=== PATIENT | female | born 1995 ===

== ENCOUNTER 2016-12-23 17:09 | Emergency (ER) | payer MEDICAID ==
[2016-12-23 17:11] VITALS: BMI 17.6
[2016-12-23 17:13] VITALS: TEMP 98.9
[2016-12-23] MEDS ORDERED: Sodium Chloride 0.9% 1,000 ML IV STA (17:35)
--- NOTE | 2016-12-23 17:41 | ED PDOC ---
Arrival/HPI - General Chief Complaint: Back Pain Time Seen by Provider: 12/23/16 17:19 Historian: Patient - History of Present Illness Narrative History of Present Illness (Text): 12/23/16 17:37 21 -year-old female presents today with a sudden onset of left sided flank pain. Patient states she was woken up at 4:00 in the morning with pain to the left side of the back. Patient denies urinary symptoms. Denies fevers or chills. Patient denies any recent trauma or injury. Denies any heavy lifting. Patient denies abdominal pain. She describes the pain as sharp and stabbing and worse with deep inspiration and movement. pt states she took tylenol at home this morning without improvement in the symptoms. no vomiting/diarrhea. pt denies cp or sob. no n/v/d. no vaginal bleeding or discharge. pt states she is worried that she has a kidney stone. pt denies dysuria or urinary frequency. denies hematuria. Past Medical History - Provider Review Nursing Documentation Reviewed: Yes - Travel History Have you recently traveled outside [place] w/in the past 3 mons?: No - Infectious Disease Hx of Infectious Diseases: None - Tetanus Immunization Tetanus Immunization: Unknown - Cardiac Hx Cardiac Disorders: No - Pulmonary Hx Respiratory Disorders: No - Neurological Hx Neurological Disorder: No - HEENT Hx HEENT Disorder: No - Renal Hx Renal Disorder: No - Endocrine/Metabolic Hx Endocrine Disorders: No - Hematological/Oncological Hx Blood Disorders: No - Integumentary Hx Dermatological Disorder: No - Musculoskeletal/Rheumatological Hx Musculoskeletal Disorders: No Hx Falls: No - Gastrointestinal Hx Gastrointestinal Disorders: No - Genitourinary/Gynecological Hx Genitourinary Disorders: No - Psychiatric Hx Psychophysiologic Disorder: No Hx Substance Use: No - Surgical History Other/Comment: Breast augmentation October 2016 - Anesthesia Hx Anesthesia: Yes (epidural) Hx Anesthesia Reactions: No Hx Malignant Hyperthermia: No Family/Social History - Physician Review Nursing Documentation Reviewed: Yes Family/Social History: Unknown Family HX Smoking Status: Never Smoked Hx Alcohol Use: No Hx Substance Use: No Allergies/Home Meds Allergies/Adverse Reactions: Allergies No Known Allergies Allergy (Verified 12/23/16 17:12) Review of Systems - Review of Systems Constitutional: absent: Fatigue, Fevers Respiratory: absent: SOB, Cough Cardiovascular: absent: Chest Pain, Palpitations Gastrointestinal: absent: Abdominal Pain, Nausea, Vomiting Genitourinary Female: absent: Dysuria, Frequency, Hematuria, Vaginal Bleeding, Vaginal Discharge Musculoskeletal: Back Pain. absent: Arthralgias, Neck Pain Skin: absent: Rash, Pruritis Neurological: absent: Headache, Dizziness Psychiatric: absent: Anxiety, Depression Physical Exam Vital Signs Reviewed: Yes Vital Signs Temp Pulse Resp BP Pulse Ox 12/23/16 18:10 86 18 121/75 99 12/23/16 17:12 98.9 F 94 H 19 122/81 99 Temperature: Afebrile Blood Pressure: Normal Pulse: Regular Respiratory Rate: Normal Appearance: Positive for: Well-Appearing, Non-Toxic, Comfortable Pain Distress: None Mental Status: Positive for: Alert and Oriented X 3 - Systems Exam Head: Present: Atraumatic Mouth: Present: Moist Mucous Membranes Neck: Present: Normal Range of Motion Respiratory/Chest: Present: Clear to Auscultation, Good Air Exchange. No: Respiratory Distress, Accessory Muscle Use Cardiovascular: Present: Regular Rate and Rhythm, Normal S1, S2. No: Murmurs Abdomen: Present: Normal Bowel Sounds. No: Tenderness, Distention, Peritoneal Signs, Rebound, Guarding Back: Present: Normal Inspection, Paraspinal Tenderness (+ left flank tenderness ; no edema, no erythema; no ecchymosis). No: CVA Tenderness, Midline Tenderness Upper Extremity: Present: Normal Inspection Lower Extremity: Present: Normal Inspection Neurological: Present: GCS=15, Speech Normal Skin: Present: Warm, Dry, Normal Color. No: Rashes Psychiatric: Present: Alert, Oriented x 3 Medical Decision Making ED Course and Treatment: 12/23/16 17:54 21-year-old female with left flank pain since 4 AM this morning CBC wbc; 13.4 CMP: wnl Urinalysis + leukocytes, + blood, Toradol, normal saline given Patient reassessment: pt feeling better after medications, vitals stable. 12/23/16 21:01 discussed all results in depth with the patient; advised f/u with primary care physician tomorrow. advised taking abx as prescribed. advised immediate return if symptoms worsen,persist or if new symptoms develop; high fevers, increasing pain, nausea/vomiting. will start patient on levaquin x 5 days. will give 1st done in er and d/c home with 4 more days worth. pt has appointment with PMD tomorrow. impression; back pain, pyelonephritis motrin every 6 hours as needed for pain flexeril; 1 tablet every 8 hours as needed for muscle spasms; may cause drowsiness. levaquin; daily x 4 more days follow up with the primary care physician tomorrow return immediately if symptoms worsen,persist or if new symptoms develop; high fevers, increasing pain, nausea/vomiting or if any other concerning symptoms develop. - Lab Interpretations Lab Results: 12/23/16 18:05 12/23/16 19:25 Lab Results 12/23/16 19:25: Sodium 140, Potassium 4.0, Chloride 106, Carbon Dioxide 25, Anion Gap 13, BUN 11, Creatinine 0.6, Est GFR ( Amer) > 60, Est GFR (Non- Af Amer) > 60, Random Glucose 79, Calcium 9.0, Total Bilirubin 0.4, AST 29, ALT 19, Alkaline Phosphatase 65, Total Protein 8.1, Albumin 4.2, Globulin 3.9, Albumin/Globulin Ratio 1.1 12/23/16 18:05: WBC 13.4 H, RBC 4.45, Hgb 12.2, Hct 36.7, MCV 82.5, MCH 27.4, MCHC 33.2, RDW 14.4, Plt Count 417, MPV 9.4, Gran % 73.2 H, Lymph % (Auto) 17.7 L, Sully % (Auto) 8.3 H, Eos % (Auto) 0.6 L, Baso % (Auto) 0.2, Gran # 9.82 H, Lymph # 2.4, Sully # 1.1 H, Eos # 0.1, Baso # 0.03 12/23/16 18:05: Urine Color Yellow, Urine Appearance Clear, Urine pH 6.0, Ur Specific [place] >= 1.030, Urine Protein Negative, Urine Glucose (UA) Negative, Urine Ketones Negative, Urine Blood Small H, Urine Nitrate Negative, Urine Bilirubin Negative, Urine Urobilinogen 0.2, Ur Leukocyte Esterase Trace H, Urine RBC 5 - 10, Urine WBC 1 - 3, Ur Epithelial Cells 4 - 5, Urine Bacteria Mod , Urine HCG, Qual Negative - RAD Interpretation Radiology Orders: 12/23/16 17:38 CHEST PORTABLE [RAD] Stat 12/23/16 19:14 ABD & PELVIS W/O PO OR IV CONT [CT] Stat - Medication Orders Current Medication Orders: Discontinued Medications Sodium Chloride (Sodium Chloride 0.9%) 1,000 mls @ 999 mls/hr IV .Q1H1M STA Stop: 12/23/16 18:35 Last Admin: 12/23/16 18:08 Dose: 999 mls/hr Ketorolac Tromethamine (Toradol) 15 mg IVP STAT STA Stop: 12/23/16 17:36 Last Admin: 12/23/16 18:08 Dose: 15 mg Re-Assess: SHARONA Pain Assessment Document 12/23/16 19:08 HI (Rec: 12/23/16 19:11 OK [id number]) Pain Reassessment Is this a pain reassessment? Yes Sleep Is patient sleeping during reassessment? No Presence of Pain Presence of Pain No Pain Scale Used Pain Scale Used Numeric Disposition/Present on Arrival - Present on Arrival Any Indicators Present on Arrival: No History of DVT/PE: No History of Uncontrolled Diabetes: No Urinary Catheter: No History of Decub. Ulcer: No History Surgical Site Infection Following: None - Disposition Have Diagnosis and Disposition been Completed?: Yes Diagnosis: Pyelonephritis, Back pain Disposition: HOME/ ROUTINE Disposition Time: 21:10 Patient Plan: Discharge Condition: GOOD Discharge Instructions (ExitCare): Acute Pyelonephritis (ED), Back Pain (ED) Additional Instructions: motrin every 6 hours as needed for pain flexeril; 1 tablet every 8 hours as needed for muscle spasms; may cause drowsiness. levaquin; daily x 4 more days follow up with the primary care physician tomorrow return immediately if symptoms worsen,persist or if new symptoms develop; high fevers, increasing pain, nausea/vomiting or if any other concerning symptoms develop. Prescriptions: Cyclobenzaprine [Flexeril] 5 mg PO Q8 #10 tab Ibuprofen [Motrin Tab] 400 mg PO Q6H PRN #20 tab PRN Reason: Pain, Mild (1-3) Levofloxacin [Levaquin] 750 mg PO DAILY #4 tablet Forms: WORK NOTE
[2016-12-23 18:11] VITALS: BP 121/75
[2016-12-23 18:12] LABS: ADD MANUAL DIFF? NO
[2016-12-23 18:33] LABS: URINE BILIRUBIN NEGATIVE (NEGATIVE); URINE BLOOD SMALL (NEGATIVE); URINE GLUCOSE (UA) NEGATIVE (NEGATIVE); URINE KETONE NEGATIVE (NEGATIVE); URINE LEUKOCYTE ESTERASE TRACE Leu/uL (NEGATIVE); URINE PROTEIN NEGATIVE mg/dL (<30 mg/dL); URINE UROBILINOGEN 0.2 E.U./dL (<1 E.U./dL)
[2016-12-23 18:35] LABS: URINE APPEARANCE CLEAR (CLEAR); URINE COLOR YELLOW (YELLOW)
[2016-12-23 18:40] LABS: BASO # 0.03 K/mm3 (0.0-2.0); BASO % 0.2 % (0.0-3.0); EOS # 0.1 (0.0-0.7); EOS % 0.6 % (1.5-5.0); GRAN # 9.82 (1.4-6.5); GRAN % 73.2 % (50.0-68.0); HEMATOCRIT 36.7 % (36.0-48.0); LYMPH # 2.4 (1.2-3.4); LYMPH % 17.7 % (22.0-35.0); MEAN CELL VOLUME 82.5 fL (80.0-105.0); MEAN CORPUSCULAR HEMOGLOBIN 27.4 pg (25.0-35.0); MEAN CORPUSCULAR HGB CONC 33.2 g/dl (31.0-37.0); MEAN PLATELET VOLUME 9.4 fl (7.0-11.0); MONO # 1.1 (0.1-0.6); MONO % 8.3 % (1.0-6.0); PLATELET COUNT 417 10^3/uL (120.0-450.0); RED CELL DISTRIBUTION WIDTH 14.4 % (11.5-14.5); WHITE BLOOD COUNT 13.4 10^3/ul (4.5-11.0)
--- NOTE | 2016-12-23 18:42 | RAD ---
HISTORY: flank pain COMPARISON: No prior. FINDINGS: LUNGS: No active pulmonary disease. PLEURA: No significant pleural effusion identified, no pneumothorax apparent. CARDIOVASCULAR: Normal. OSSEOUS STRUCTURES: No significant abnormalities. VISUALIZED UPPER ABDOMEN: Normal. OTHER FINDINGS: None. IMPRESSION: No active disease.
[2016-12-23 18:53] LABS: URINE BACTERIA MOD (NEG)
[2016-12-23 20:13] LABS: ALB/GLOB RATIO 1.1 (1.1-1.8); ALKALINE PHOSPHATASE 65 U/L (38-133); ALT/SGPT 19 U/L (7-56); AST/SGOT 29 U/L (15-39); BILIRUBIN,TOTAL 0.4 mg/dL (0.2-1.3); BLOOD UREA NITROGEN 11 mg/dL (7-21); CARBON DIOXIDE 25 mmol/L (21-33); CHLORIDE 106 mmol/L (98-107); GFR AFRICAN-AMERICAN > 60; GLUCOSE,RANDOM 79 mg/dL (70-110); SODIUM 140 mmol/L (132-148); TOTAL PROTEIN 8.1 g/dL (5.8-8.3)
--- NOTE | 2016-12-23 20:56 | CT ---
EXAM: CT Abdomen and Pelvis Without Intravenous Contrast CLINICAL HISTORY: 21 years old, female; Pain; Abdominal pain; Flank; Left; Additional info: Left flank pain TECHNIQUE: Axial computed tomography images of the abdomen and pelvis without intravenous contrast. This CT exam was performed using one or more of the following dose reduction techniques: automated exposure control, adjustment of the mA and/or kV according to patient size, and/or use of iterative reconstruction technique. Coronal and sagittal reformatted images were created and reviewed. EXAM DATE/TIME: 12/23/2016 7:14 PM COMPARISON: There are no prior studies for comparison. FINDINGS: Lower thorax: Heart size is normal. There is scarring at the lung bases. There are bilateral breast implants. ABDOMEN: Liver: unremarkable Gallbladder and bile ducts: unremarkable Pancreas: unremarkable Spleen: unremarkable Adrenals: unremarkable Kidneys and ureters: unremarkable Stomach and bowel: Stomach is incompletely distended. Rotation is normal. There is no obstruction. Terminal ileum is unremarkable. Visualized portion of the appendix is unremarkable.Colon is incompletely distended which limits evaluation. Appendix: See above. PELVIS: Bladder: unremarkable Reproductive: Uterus is retroflexed with an IUD.Adnexa are unremarkable. ABDOMEN and PELVIS: Intraperitoneal space: There is no significant fluid.There is no free air. Bones/joints: There is sclerosis at the sacroiliac joints.There are no acute osseous abnormalities Soft tissues: There is mild rectus diastases Vasculature: Vascular structures are unremarkable. Lymph nodes: There is shotty adenopathy. IMPRESSION: No renal or ureteral stones or hydronephrosis; retroflexed uterus with IUD Additional findings as described above.
[2016-12-23] MEDS ORDERED: levoFLOXacin 750 MG TAB PO STA (21:06)
[2016-12-23 21:53] VITALS: PULSE 80; RESP 16; O2SAT 100
== END 2016-12-23 21:52 | disposition home or self-care (01) ==
LOC: ED 17:09
DX: N12 Tubulo-interstitial nephritis, not specified as acute or chronic (principal); M54.9 Dorsalgia, unspecified
CPT/HCPCS: 71010; 74176; 80053; 81001; 84703; 85025; 87086; 96374; 99284; J1885; J7040